=== PATIENT | female | born 1995 | race Caucasian/White ===

== ENCOUNTER 2018-01-31 03:35 | Emergency (ER) | payer MEDICAID ==
[~2018-01-31] VITALS: Ht 165.1 cm; Wt 76.9 kg
[2018-01-31 03:45] VITALS: BP 151/74
--- NOTE | 2018-01-31 03:50 | NUR ---
22/ BIB FAMILY W C/O VAGINAL BLEEDING X 30 MINS AGO, PT STATES +HCG URINE YESTERDAY. A0. REPORTS SCANT VAG BLEED, STATES "SPOTTING", DENIES CLOTS. DENIES ANY ABD PAIN. PMH: PID Addendum: 01/31/18 at [id number] by USMAN LMP 12/23/17
[2018-01-31] MEDS ORDERED: DOXY100C9 PO (04:03)
[2018-01-31 04:09] LABS: BASOPHILS # (AUTO) 0.4 K/uL (0.00-0.22); EOSINOPHILS % (AUTO) 0.5 % (0.0-4.0); HEMATOCRIT 30.7 % (36-48); HEMOGLOBIN 9.1 g/dL (12.0-16.0); LYMPHOCYTES # (AUTO) 2.4 K/uL (2.5-16.5); LYMPHOCYTES % (AUTO) 36.9 % (20.5-51.1); MEAN CORPUSCULAR HEMOGLOBIN 19 pg (27-31); MEAN CORPUSCULAR HGB CONC 30 g/dL (33-37); MEAN CORPUSCULAR VOLUME 62.3 fL (80-94); MONOCYTES # (AUTO) 0.5 K/uL (0.8-1.0); MONOCYTES % (AUTO) 8.1 % (1.7-9.3); NEUTROPHILS # (AUTO) 3.1 K/uL (1.8-7.7); NEUTROPHILS % (AUTO) 47.8 % (42.2-75.2); PLATELET COUNT (AUTO) 203 K/uL (140-450); RED BLOOD CELL COUNT(AUTO) 4.92 MIL/uL (4.20-5.40); RED CELL DISTRIBUTION WIDTH 17.7 % (11.6-13.7); WHITE BLOOD COUNT (AUTO) 6.4 K/uL (4.8-10.8)
[2018-01-31 04:23] LABS: ANION GAP 14.7 (8-16); CARBON DIOXIDE 26.4 mmol/L (21-32); CREATININE 0.8 mg/dL (0.6-1.3); POTASSIUM 3.1 mmol/L (3.5-5.1)
--- NOTE | 2018-01-31 04:24 | NUR ---
PT TAKEN TO CT
[2018-01-31 04:26] LABS: APPEARANCE,URINE SL CLOUDY (CLEAR); BILIRUBIN,URINE NEGATIVE (NEGATIVE); BLOOD, URINE NEGATIVE (NEGATIVE); COLOR,URINE YELLOW (YELLOW); LEUKOCYTE ESTERASE ,URINE NEGATIVE (NEGATIVE); NITRITE, URINE NEGATIVE (NEGATIVE); UGLUCOSE NEGATIVE (NEGATIVE)
[2018-01-31 04:29] LABS: ALBUMIN 3.5 g/dL (3.4-5.0); TOTAL BILIRUBIN 0.3 mg/dL (0.0-1.0)
--- NOTE | 2018-01-31 04:54 | NUR ---
PT BACK FROM [facility]/S VIA W/C WITH Bix [id number]
--- NOTE | 2018-01-31 05:48 | NUR ---
Patient appears to be resting comfortably in bed. Vital Signs within normal limits. Respirations even and unlabored. denies any active bleeding at this time
[2018-01-31 06:50] VITALS: BP 128/76
--- NOTE | 2018-01-31 06:50 | NUR ---
Patient discharged with v/s stable. Written and verbal after care instructions given and explained. Patient verbalized understanding. Ambulatory with steady gait. All questions addressed prior to discharge. Advised to follow up with PMD. pt left without discharge instructions.
== END 2018-01-31 06:50 | disposition home or self-care (01) ==
LOC: MED 03:35
DX: O46.91 Antepartum hemorrhage, unspecified, first trimester (principal); Z3A.01 Less than 8 weeks gestation of pregnancy; Z79.899 Other long term (current) drug therapy
CPT/HCPCS: 36415; 76801; 80053; 81003; 81025; 84702; 85025; 86886; 86900; 86901; 99285; Q0092